=== PATIENT | female | born 1940 | race Caucasian/White ===

== ENCOUNTER 2017-01-29 12:38 | Outpatient (CLI) | payer MEDICARE | END 2017-01-29 12:39 | disposition critical access hospital (66) | LOC: EMS 12:38 | PROVIDERS: ATTEND Surgery | DX: R06.00 Dyspnea, unspecified (principal) | CPT/HCPCS: A0425; A0427 ==

== ENCOUNTER 2017-01-29 12:40 | Emergency (ER) | payer MEDICARE ==
[2017-01-29] MEDS ORDERED: NITROGLYCERIN 2% PASTE TOP ONE (12:46)
[2017-01-29] MEDS ORDERED: NITROGLYCERIN 2% PASTE TOP STA (12:47)
[2017-01-29] MEDS ORDERED: MORPHINE 2 MG/ML SYRINGE ONE (12:47)
[2017-01-29] MEDS ORDERED: MORPHINE 2 MG/ML SYRINGE IVP STA (12:47)
--- NOTE | 2017-01-29 12:51 | ED Physician Documentation ---
PD HPI DYSPNEA - Stated complaint Stated Complaint: SOA - Chief complaint Chief Complaint: Resp - History obtained from History obtained from: Patient, EMS - History of Present Illness Timing - onset: Today Timing - onset during: Other (while having therapy on her back) Timing - duration: Minutes (30) Timing - details: Abrupt onset Pain level max: 0 Pain level now: 0 Improved by: O2, BiPAP / CPAP Worsened by: Other (nothing) Associated symptoms: Other (dyspnea) Similar symptoms before: Has not had sx before - Additional information Additional information: therapist states that the patient doesn't see doctors and has had back pain for 1 week. Review of Systems Unable to obtain: Other (unable to speak) PD PAST MEDICAL HISTORY - Past Medical History Past Medical History: No - Past Surgical History Past Surgical History: No - Present Medications Home Medications: Ambulatory Orders Medication Instructions Recorded Confirmed Home Medications Unobtainable 01/29/17 01/29/17 [HOME MEDICATIONS UNOBTAINABLE] - Allergies Allergies/Adverse Reactions: Allergies Allergy/AdvReac Type Severity Reaction Status Date / Time No Known Drug Allergies Allergy Verified 01/29/17 12:54 - Living Situation Living Arrangement: reports: At home - Social History Does the pt smoke?: No Does the pt have substance abuse?: No PD ED PE NORMAL - General General: Other (drowsy) - HEENT HEENT: Moist mucous membranes - Neck Neck: Supple, no meningeal sign - Cardiac Cardiac: Other (tachycardic) - Respiratory Respiratory: Other (rales B) - Abdomen Abdomen: Soft, Non tender, Non distended - Back Back: No CVA TTP - Derm Derm: Other (cool, clammy) - Extremities Extremities: Other (2+ LE edema) - Neuro Neuro: Other (drowsy) Results - Vitals Vitals: Vital Signs - 24 hr 01/29/17 01/29/17 01/29/17 12:42 12:54 13:25 Temperature Heart Rate 136 H 120 H 129 H Respiratory 36 H 36 H Rate Blood Pressure 156/136 H 170/93 H O2 Saturation 80 L 92 01/29/17 01/29/17 01/29/17 14:11 14:46 15:22 Temperature 36.1 C L Heart Rate 122 H 113 H 122 H Respiratory 30 H 36 H 30 H Rate Blood Pressure 152/78 H 126/70 124/69 O2 Saturation 93 93 95 Oxygen O2 Source BIPAP - EKG (time done) 1328 Rate: Rate (enter#) (128) Rhythm: Sinus tachycardia [place]: Normal Intervals: Normal [place] QRS: Normal Ischemia: Other (ST depression V1-4) Other comments: Other comments (respiratory artifact) - Labs Labs: Laboratory Tests 01/29/17 01/29/17 01/29/17 13:15 13:15 13:15 WBC 15.9 H RBC 4.93 Hgb 14.4 Hct 44.4 MCV 90.2 MCH 29.2 MCHC 32.4 RDW 14.1 MPV 7.5 L Neut # 11.5 H Lymph # 3.2 [place] # 1.1 H Eos # 0.0 Baso # 0.1 Absolute Nucleated RBC 0.00 Nucleated RBCs 0.0 WBC Morphology 1+ VACUOLATION Platelet Estimate INCREASED (>450,000) Platelet Morphology PLATELET CLUMPING RBC Morph Micro Appear NORMAL APPEARANCE Sodium 135 Potassium 4.6 Chloride 103 Carbon Dioxide 15 L Anion Gap 17.0 H BUN 12 Creatinine 0.9 Estimated GFR (MDRD) 61 L Glucose 199 H Calcium 9.1 Total Bilirubin 0.8 AST 41 ALT 39 Alkaline Phosphatase 111 Troponin I 13.19 H* B-Natriuretic Peptide Total Protein 8.1 Albumin 2.9 L Globulin 5.2 H Albumin/Globulin Ratio 0.6 L Lipase 34 01/29/17 13:15 WBC RBC Hgb Hct MCV MCH MCHC RDW MPV Neut # Lymph # [place] # Eos # Baso # Absolute Nucleated RBC Nucleated RBCs WBC Morphology Platelet Estimate Platelet Morphology RBC Morph Micro Appear Sodium Potassium Chloride Carbon Dioxide Anion Gap BUN Creatinine Estimated GFR (MDRD) Glucose Calcium Total Bilirubin AST ALT Alkaline Phosphatase Troponin I B-Natriuretic Peptide 1569 H Total Protein Albumin Globulin Albumin/Globulin Ratio Lipase - Rads (name of study) cxr Radiology: Prelim report reviewed, EMP read contemporaneously, See rad report ( Jaolegek-qi-iqrtop cardiomegaly. Moderate diffuse symmetrical airspace densities. Differential is between pneumonia versus vascular congestion. . More focal left basilar consolidation or atelectasis with small left pleural effusion. ) PD MEDICAL DECISION MAKING - ED course Complexity details: reviewed results, re-evaluated patient, considered differential, d/w patient, d/w sap solution manager consultant ED course: Call placed to [facility] at 1350 - ICU bed available, but pt is [facility]/ and won't accept until cleared by [facility]. 1400 - Call placed to [facility] and will "check on beds" 1410 - D/w Dr. Alberto Bill/ who states can transfer anywhere necessary 1419 - call back to [facility] 1430 - Dr. Siva Darby ([facility] ICU accepts and will activate hatchery laborer) Patient is a 76-year-old female who does not go and see doctors, so unknown past medical history. Had sudden onset of flash pulmonary edema today while having a back massage. She had an initial blood pressure of 40/20, initial pulse oxygenation of 50-60% on room air. Was given 80 mg of Lasix IV with EMS, given Nitropaste (SBP 130 at time of administration) here as well as placed on BiPAP. Her mentation gradually improved in the emergency department and she is speaking in short sentences. Found to have an acute AL and given heparin as well as rectal aspirin. Initial EKG was limited secondary to respiratory distress and artifact, but did appear consistent with likely posterior AL. Patient did need to be stabilized prior to transfer for higher level of care. This document was made in part using voice recognition software. While efforts are made to proofread this document, sound alike and grammatical errors may occur. - Critical Care Time(min): 50 Time Includes: Direct patient care, Reassess patient, Document care, Coordinate care, See progress note Data interpretation: See progress note Procedures included in critical care time: See progress note Procedures excluded from critical care time: See progress note Departure - Departure Disposition: 02 Transfer Acute Care Hosp Clinical Impression: Respiratory distress Pulmonary edema Qualifiers: Chronicity: acute Qualified Code(s): J81.0 - Acute pulmonary edema STEMI (ST elevation myocardial infarction) Qualifiers: Involved coronary artery: unspecified coronary artery Qualified Code(s): I21.3 - ST elevation (STEMI) myocardial infarction of unspecified site Condition: Serious Discharge Date/Time: 01/29/17 15:51
[2017-01-29 13:23] LABS: BASOPHILS # (AUTO) 0.1 10^3/uL (0.0-0.1); BASOPHILS % (AUTO) 0.5 %; EOSINOPHILS % (AUTO) 0.1 %; HCT - HEMATOCRIT 44.4 % (37.0-47.0); HGB - HEMOGLOBIN 14.4 g/dL (12.0-16.0); LYMPHOCYTES # (AUTO) 3.2 10^3/uL (1.5-3.5); LYMPHOCYTES % (AUTO) 20.2 %; MEAN CORPUSCULAR HEMOGLOBIN 29.2 pg (27.0-31.0); MEAN CORPUSCULAR HGB CONC 32.4 g/dL (32.0-36.0); MEAN CORPUSCULAR VOLUME 90.2 fL (81.0-99.0); MEAN PLATELET VOLUME 7.5 fL (7.9-10.8); MONOCYTES # (AUTO) 1.1 10^3/uL (0.0-1.0); NEUTROPHILS # (AUTO) 11.5 10^3/uL (1.5-6.6); NEUTROPHILS % (AUTO) 72.2 %; RED BLOOD COUNT 4.93 10^6/uL (4.20-5.40); RED CELL DISTRIBUTION WIDTH 14.1 % (12.0-15.0); UNCORRECTED WHITE BLOOD COUNT 15.9 x10^3/uL; WHITE BLOOD COUNT 15.9 x10^3/uL (4.8-10.8)
[2017-01-29 13:35] LABS: ALBUMIN/GLOBULIN RATIO 0.6 (1.0-2.2); BILIRUBIN,TOTAL 0.8 mg/dL (0.2-1.0); CALCIUM 9.1 mg/dL (8.5-10.3); CREATININE 0.9 mg/dL (0.4-1.0); POTASSIUM 4.6 mmol/L (3.5-5.0); TOTAL PROTEIN 8.1 g/dL (6.7-8.2)
--- NOTE | 2017-01-29 13:40 | XRAY Preliminary Report ---
Exam: XR Chest 1 View IMPRESSION: 1. Nwdqwmfd-qo-vbhsdo megaly. 2. Moderate diffuse symmetrical airspace densities. Differential is between pneumonia versus vascular congestion. 3. Left lung base dense consolidation or atelectasis with small left pleural effusion. [facility] SITE ID: [id number]
[2017-01-29 13:41] LABS: PLATELET ESTIMATE, MANUAL INCREASED (>450,000) (NORMAL); PLATELET MORPHOLOGY PLATELET CLUMPING (NORMAL); WBC MORPHOLOGY (MULTIPLE) 1+ VACUOLATION (NORMAL)
[2017-01-29] MEDS ORDERED: HEPARIN 5,000 UNIT/ML VIAL IVP STA (13:48)
[2017-01-29] MEDS ORDERED: HEPARIN 25,000 UNITS/500 ML 500 ML IV STA (13:48)
--- NOTE | 2017-01-29 13:48 | XRAY Report ---
EXAM: CHEST RADIOGRAPHY EXAM DATE: 01/29/2017 01:12 PM. CLINICAL HISTORY: Acute onset of tachycardia and dyspnea. COMPARISON: None. TECHNIQUE: 1 view. FINDINGS: Lungs/Pleura: Moderate diffuse airspace infiltrates symmetrical fashion although dense airspace conso lidation and/or small effusion obscuring the inferior-most aspect of the left lung. No pneumothorax. Normal lung volumes. Mediastinum: Hzalwiwr-dc-ndwarw cardiomegaly. No tracheal shift. Other: None. IMPRESSION: 1. Thmkrklw-yx-nbgxdc cardiomegaly. 2. Moderate diffuse symmetrical airspace densities. Differential is between pneumonia versus vascular congestion. 3. More focal left basilar consolidation or atelectasis with small left pleural effusion. [facility] Referring Provider Line: [phone] SITE ID: [id number]
[2017-01-29] MEDS ORDERED: HEPARIN 5,000 UNIT/ML VIAL ONE (13:57)
[2017-01-29] MEDS ORDERED: HEPARIN 25,000 UNITS/500 ML 500 ML IV ONE (13:57)
[2017-01-29] MEDS ORDERED: ASPIRIN 300 MG SUPP PR STA (14:16)
[2017-01-29] MEDS ORDERED: ASPIRIN 300 MG SUPP PR ONE (14:42)
[2017-01-29 15:23] VITALS: BP 124/69
== END 2017-01-29 15:51 | disposition short-term general hospital (02) ==
LOC: ED 12:40
DX: I21.3 ST elevation (STEMI) myocardial infarction of unspecified site (principal); R06.00 Dyspnea, unspecified; J81.1 Chronic pulmonary edema
CPT/HCPCS: 36415; 51702; 71010; 80053; 83690; 83880; 84484; 85025; 93005; 96365; 96366; 96375; 96376; 99285; 99291; A9270; 99284

== ENCOUNTER 2017-03-20 14:06 | Outpatient (CLI) | payer MEDICARE | END 2017-03-20 14:07 | disposition critical access hospital (66) | LOC: EMS 14:06 | PROVIDERS: ATTEND Surgery | DX: R00.0 Tachycardia, unspecified (principal) | CPT/HCPCS: A0425; A0427 ==

== ENCOUNTER 2017-03-20 14:29 | Emergency (ER) | payer MEDICARE ==
[2017-03-20 15:12] LABS: BASOPHILS % (AUTO) 0.8 %; EOSINOPHILS % (AUTO) 0.8 %; HCT - HEMATOCRIT 33.9 % (37.0-47.0); HGB - HEMOGLOBIN 11.1 g/dL (12.0-16.0); LYMPHOCYTES # (AUTO) 0.7 10^3/uL (1.5-3.5); LYMPHOCYTES % (AUTO) 12.1 %; MEAN CORPUSCULAR HGB CONC 32.8 g/dL (32.0-36.0); MEAN CORPUSCULAR VOLUME 88.4 fL (81.0-99.0); MEAN PLATELET VOLUME 7.4 fL (7.9-10.8); MONOCYTES # (AUTO) 0.5 10^3/uL (0.0-1.0); MONOCYTES % (AUTO) 8.8 %; NEUTROPHILS # (AUTO) 4.7 10^3/uL (1.5-6.6); NEUTROPHILS % (AUTO) 77.5 %; RED BLOOD COUNT 3.83 10^6/uL (4.20-5.40); RED CELL DISTRIBUTION WIDTH 16.5 % (12.0-15.0); UNCORRECTED WHITE BLOOD COUNT 6.1 x10^3/uL; WHITE BLOOD COUNT 6.1 x10^3/uL (4.8-10.8)
[2017-03-20 15:19] LABS: CALCIUM 8.9 mg/dL (8.5-10.3); CREATININE 0.6 mg/dL (0.4-1.0); POTASSIUM 3.3 mmol/L (3.5-5.0)
--- NOTE | 2017-03-20 15:24 | ED Physician Documentation ---
History of Present Illness - Stated complaint Stated Complaint: PALPITATIONS - Chief complaint Chief Complaint: Cardiac - Additonal information Additional information: hx from pt 76 female s/p CA and cath/stent 01/19 and another stent 02/23 home now due to have mitral valve replacement in the next few weeks taking meds including metoprolol XL 25 QD looks like dose limited by BP and her HR has been approx 105 today doing cardiac rehab walking with walker and felt soa which is not new for her but also throbbing palp in her neck not actually chest or neck pain cardiac rehab staff noted HR [address] Anguiano who sent pt to the ER legs always a bit swollen, no change, no pain Review of Systems Constitutional: denies: Fever, Chills Cardiac: reports: Palpitations. denies: Chest pain / pressure GI: denies: Abdominal Pain, Nausea, Vomiting Musculoskeletal: reports: Extremity swelling (not new) Endocrine: reports: Easy bruising / bleeding (palvix) Immunocompromised: denies: Immunocompromised PD PAST MEDICAL HISTORY - Past Medical History Past Medical History: Yes Cardiovascular: Coronary artery disease - Past Surgical History Past Surgical History: No Cardiovascular: Coronary stent - Present Medications Home Medications: Ambulatory Orders Medication Instructions Recorded Confirmed Aspirin [Aspirin EC] 81 mg DAILY 03/20/17 03/20/17 Atorvastatin Calcium 80 mg PO DAILY 03/20/17 03/20/17 Captopril 3.125 mg PO BID 03/20/17 03/20/17 Clopidogrel [Plavix] 75 mg DAILY 03/20/17 03/20/17 Furosemide 20 mg BID 03/20/17 03/20/17 Magnesium Oxide [Magnesium] 400 mg PO DAILY 03/20/17 03/20/17 Potassium Chloride [Klor-Con 10] 10 meq PO DAILY 03/20/17 03/20/17 - Allergies Allergies/Adverse Reactions: Allergies Allergy/AdvReac Type Severity Reaction Status Date / Time gluten AdvReac Unknown Verified 03/20/17 14:35 - Social History Does the pt smoke?: No Smoking Status: Never smoker Does the pt have substance abuse?: No PD ED PE NORMAL - Vitals Vital signs reviewed: Yes - General General: Alert and oriented X 3 - HEENT HEENT: PERRL - Neck Neck: Supple, no meningeal sign - Cardiac Cardiac: RRR (tachy no murmur) - Respiratory Respiratory: No respiratory distress. No: Clear bilaterally (faint rales vicky) - Derm Derm: Normal color - Extremities Extremities: Other (mild symm edema, no TTP) - Neuro Neuro: Alert and oriented X 3 Results - Vitals Vitals: Vital Signs - 24 hr 03/20/17 03/20/17 03/20/17 14:30 15:15 15:26 Temperature 36.6 C 36.6 C Heart Rate 118 H 71 108 H Respiratory 18 17 Rate Blood Pressure 121/55 L 128/80 113/48 L O2 Saturation 95 100 96 03/20/17 03/20/17 03/20/17 17:28 18:48 19:14 Temperature 36.3 C L Heart Rate 110 H 74 98 Respiratory 23 16 20 Rate Blood Pressure 112/49 L 132/75 H 105/48 L O2 Saturation 95 97 98 Oxygen O2 Source Nasal cannula - EKG (time done) 1434 Rate: Rate (enter#) Rhythm: NSR, Other (a PVC) [place]: Normal Intervals: Normal [place], Other (slight ST depr anterior leads) - Labs Labs: Laboratory Tests 03/20/17 03/20/17 03/20/17 15:04 15:04 15:04 WBC 6.1 RBC 3.83 L Hgb 11.1 L Hct 33.9 L MCV 88.4 MCH 29.0 MCHC 32.8 RDW 16.5 H Plt Count 315 MPV 7.4 L Neut # 4.7 Lymph # 0.7 L [place] # 0.5 Eos # 0.0 Baso # 0.0 Absolute Nucleated RBC 0.00 Nucleated RBCs 0.0 D-Dimer Sodium 134 L Potassium 3.3 L Chloride 101 Carbon Dioxide 22 Anion Gap 11.0 BUN 10 Creatinine 0.6 Estimated GFR (MDRD) 97 Glucose 119 H Calcium 8.9 Troponin I 0.07 03/20/17 16:42 WBC RBC Hgb Hct MCV MCH MCHC RDW Plt Count MPV Neut # Lymph # [place] # Eos # Baso # Absolute Nucleated RBC Nucleated RBCs D-Dimer > 1050.0 H Sodium Potassium Chloride Carbon Dioxide Anion Gap BUN Creatinine Estimated GFR (MDRD) Glucose Calcium Troponin I - Rads (name of study) CXR Radiology: Prelim report reviewed (to large left and small right pleural effusion similar to prior, atelectasis less likely infiltrate) CTPA Radiology: See rad report (no PE, mild cardiac enlargemebt, no pericardial effusion, small 1.1 cm R hilar node, mod to large left and small right pleural effusions, lower lobe atelectass, no pneumo) PD MEDICAL DECISION MAKING - ED course ED course: concern for PE, not low risk so d dimer not ideal - ordered CTPA - pt unable to lay flat for CPA - this is no new for her but she absolutely can not tolerate the CT so will get CXR and d dimer and may have to admit overnight to get VQ and echo in AM if baseline CXR would allow this CXR similar to prior vicky effusions L>R d dimer > upper limit so VQ no possibe and CTPA needed - gave ativan and O2 and able to get pt through CT - no PE received records from [facility], pt is a [place] pt, she has acute systolic on diastolic heart failure2/2 CAD and severe mitral regurge, had inf post STEMI , had LALA stenting OM1 01/29, then had LALA stent to RCA 02/28 as well as noting re-occlusion of her recent OM1 stent, had int a fib but mostly sinus tach on asa and plavix, her most recent EF was 45-50% improved from prior 35-40%, she has had throacentesis X 2 but fluid promptly reaccumulates, on lasix, on captopril for afterload red, on metoprolol, she was set up for mitral valve replacement and had an appt with surgeon 03/13 but apparently wated to try and go to [place] for surgery where she had more family, records from [facility] clearly indicate pt has very porr exercise and position toleraance and is at high risk for decompensation and re-admission so basically 76 female with severe mitral regurge causing heart failure needing surgery has again decompensated and has essentially no excercise tolerance, cannot recline past 90 degress, and is tachy and SOA even just sitting, no PE or pna or new CA, but canno go home in this state and exceeeds the capabilities of our [facility], so will try and transfer back to [facility]/[place] after d/w [place] accepting doc, gave lasix, planned metoprolol as well but HR better at rest so held, [facility] accepts, bed available, COBRA forms complete, pt , family and night nursing staff updated, will turn over to night EMP pending transport arrival Departure - Departure Disposition: 02 Transfer Acute Care Hosp Clinical Impression: Pleural effusion Dyspnea Qualifiers: Dyspnea type: unspecified Qualified Code(s): R06.00 - Dyspnea, unspecified Mitral regurgitation Qualifiers: Cardiac valve disease etiology: etiology unspecified Qualified Code(s): I34.0 - Nonrheumatic mitral (valve) insufficiency Condition: Fair
--- NOTE | 2017-03-20 17:24 | XRAY Preliminary Report ---
Exam: XR Chest 2 View PA/LAT IMPRESSION: 1. Moderate to large left and small right pleural effusion. 2. Bilateral lower lobe opacities most consistent with atelectasis or infiltrates. No pneumothorax. [facility] SITE ID: [id number]
--- NOTE | 2017-03-20 17:44 | XRAY Report ---
EXAM: CHEST RADIOGRAPHY EXAM DATE: 03/20/2017 05:06 PM. CLINICAL HISTORY: Dyspnea COMPARISON: 01/29/2017. TECHNIQUE: 2 views. FINDINGS: Lungs/Pleura: EKG leads overlie the chest. Bilateral left greater than right costophrenic angle blunt ing. Dense retrocardiac opacities are noted. No pneumothorax is seen. Mild bronchial wall thickening. Patchy densities at the right lung base could represent atelectasis or infiltrates. Mediastinum: Heart is difficult to evaluate given the bilateral lung parenchymal and pleural process. Heart is probably enlarged but unchanged. Other: Multilevel degenerative disk disease is present throughout the thoracic spine. No osteoblastic or osteolytic bone lesions noted. IMPRESSION: 1. Moderate to large left and small right pleural effusion. 2. Bilateral lower lobe opacities most consistent with atelectasis or infiltrates. No pneumothorax. [facility] Referring Provider Line: [phone] SITE ID: [id number]
[2017-03-20] MEDS ORDERED: LORazepam 2 MG/ML SYRINGE IVP STA (17:57)
[2017-03-20] MEDS ORDERED: LORazepam 2 MG/ML SYRINGE ONE (18:18)
[2017-03-20] MEDS ORDERED: IOPAMIDOL-300 100 ML VIAL IVP ONE (18:53)
--- NOTE | 2017-03-20 19:28 | CT Preliminary Report ---
Exam: CT Chest Angio (PE) IMPRESSION: 1. No pulmonary emboli. 2. Coronary artery disease. Mild cardiac enlargement. No pericardial effusion. Small 1.1 cm right hil ar node. No bulky adenopathy. 3. Moderate to large left and small right pleural effusion. Lower lobe atelectasis. No pneumothorax. [facility] SITE ID: [id number]
--- NOTE | 2017-03-20 19:53 | CT Report ---
EXAM: CT ANGIOGRAM CHEST EXAM DATE: 03/20/2017 06:39 p.m. CLINICAL HISTORY: SOA palpitations status post inpatient stay X 2. COMPARISON: None. TECHNIQUE: Routine helical imaging was performed through the chest in the pulmonary arterial phase. I V Contrast: 100 mL of Isovue-300. Reconstructions: Coronal 3-D MIP reconstructions.Sagittal and coron al. In accordance with CT protocol optimization, one or more of the following dose reduction techniques w ere utilized for this exam: automated exposure control, adjustment of mA and/or KV based on patient s ize, or use of iterative reconstructive technique. FINDINGS: Pulmonary Arteries: Diagnostic quality: Adequate through the segmental arteries. No evidence for acute or chronic pulmona ry emboli. RV/LV is within normal limits. There is no interventricular septal bowing. There is no reflux of cont rast material in the IVC. Lungs/Pleura: Evaluation of the lung parenchyma is limited due to significant respiratory-related art ifacts. No concerning lung mass or nodule. No consolidation. Moderate to large left and small right p leural effusion with bilateral lower lobe and lingular atelectasis. No pneumothorax is noted. Mediastinum: Mild cardiac enlargement. 1.1 cm right hilar node. No bulky mediastinal or hilar adenopa thy. Coronary artery disease is present in all the major coronary vessels. No pericardial effusion is present. Small hiatal hernia is noted. Thoracic Aorta: No thoracic aortic aneurysm. Diffuse atheromatous calcified plaques are present throu ghout the nondilated thoracic aorta. No dissection is identified. Upper Abdomen: Limited evaluation of the upper abdomen is unremarkable. Small left liver cyst noted. Other: None. IMPRESSION: 1. No pulmonary emboli. 2. Coronary artery disease. Mild cardiac enlargement. No pericardial effusion. Small 1.1 cm right hil ar node. No bulky adenopathy. 3. Moderate to large left and small right pleural effusion. Lower lobe atelectasis. No pneumothorax. [facility] Referring Provider Line: [phone] SITE ID: [id number]
[2017-03-20] MEDS ORDERED: FUROSEMIDE 40 MG/4 ML VIAL IVP STA (20:24)
[2017-03-20] MEDS ORDERED: METOPROLOL 5 MG/5 ML VIAL IVP STA (20:24)
[2017-03-20] MEDS ORDERED: FUROSEMIDE 40 MG/4 ML VIAL ONE (20:48)
[2017-03-20 22:11] VITALS: BP 112/64
== END 2017-03-20 22:11 | disposition short-term general hospital (02) ==
LOC: EDUNIT# → ED 14:29
DX: J90 Pleural effusion, not elsewhere classified (principal); R06.00 Dyspnea, unspecified; I34.0 Nonrheumatic mitral (valve) insufficiency; I25.10 Atherosclerotic heart disease of native coronary artery without angina pectoris; I25.2 Old myocardial infarction; Z95.2 Presence of prosthetic heart valve; Z79.82 Long term (current) use of aspirin
CPT/HCPCS: 36415; 71020; 71275; 80048; 84484; 85025; 85379; 93005; 96374; 96375; 99284; 99285; J2060; Q9967